=== PATIENT | male | born 1950 | race Caucasian/White ===

== ENCOUNTER 2016-08-09 15:56 | Emergency (ER) | payer MEDICARE, MEDICAID ==
[~2016-08-09] VITALS: Ht 167.6 cm; Wt 80.0 kg
[~2016-08-09 15:56] MED LIST: ALBU8I INH; INSULIN PUMP; KONS520C PO; LEVA500T PO; LOSA25TA31 PO; NOVOLOGP2 SQ; OMEP20CA2 PO; OMEP20CA5 PO; PAXI20TA26 PO; PROS5TAB2 PO; ROSU40 PO; [UNRECOGNIZED DRUG - CODE] PO
[2016-08-09 15:57] VITALS: BP 135/67; PULSE 102; RESP 20; TEMP 97.6; O2SAT 99
[2016-08-09 16:03] VITALS: RESP 18
[2016-08-09] MEDS ORDERED: ROSU40 PO (19:33)
[2016-08-09] MEDS ORDERED: NOVOLOGP2 SQ (19:35)
[2016-08-09] MEDS ORDERED: PRIL20CA9 PO (19:35)
[2016-08-09] MEDS ORDERED: PAXI20TA PO (19:35)
[2016-08-09] MEDS ORDERED: COZA25TA PO (19:35)
--- NOTE | 2016-08-09 19:35 | PD ---
HPI Chief Complaint: Head Injury Time Seen by Provider: 19:25 Travel History International Travel<30 days: No Contact w/Intl Traveler<30days: No Traveled to known affect area: No History of Present Illness HPI 66-year-old male with type 1 diabetes presents presents for evaluation after mechanical fall. He reports a 1.5 weeks ago was raining and he slipped and fell , landing on his face. There was loss of consciousness and he felt somewhat confused initially after the accident but that has resolved. He reports that he had some bleeding from his posturals which has resolved. He has been having some facial plane, inferior the orbits, as well as the bridge of the nose. Symptoms have been mild. Associated with mild frontal headache with no aggravating or alleviating factors. He was seen by his primary care physician today who sent him here to have CT imaging of the brain and face. He is not on any blood thinning medications. He has had no residual confusion or amnesia, nausea or vomiting, no pain in the neck or the back of the extremities. He reports that he has broken his nose several times in the past and he believes that he probably broke it again. He has no other complaints. PFSH Past Medical History Asthma: Yes Cancer: No Cardiovascular Problems: No High Cholesterol: Yes Diabetes: Yes (INSULIN PUMP) Diminished Hearing: No Endocrine: Yes Gastrointestinal Disorders: Yes (GASTROPARESIS) GERD: Yes Genitourinary: No Hepatitis: No Immune Disorder: No Kidney Stones: Yes (WITH LITHOTRIPSY) Musculoskeletal: No Neurologic: No Psychiatric: No Reproductive: No Respiratory: No Immunizations Current: Yes Thyroid Disease: No Past Surgical History Abdominal Surgery: No AICD: No Appendectomy: Yes Body Medical Devices: INSULIN PUMP Cardiac Surgery: No Ear Surgery: No Endocrine Surgery: Yes (INSULIN PUMP) Eye Surgery: Yes (MULTIPLE SURGERIES D/T RETINOPATHY, LASIK) Genitourinary Surgery: No Gynecologic Surgery: No Insulin Pump: Yes (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) Joint Replacement: No Oral Surgery: No Pacemaker: No Thoracic Surgery: No Tonsillectomy: Yes Other Surgery: Yes (VASECTOMY, LITHOTRIPSY) Social History Alcohol Use: No Tobacco Use: No Substance Use: No Allergies-Medications (Allergen,Severity, Reaction): Coded Allergies: Zocor (Verified Allergy, Intermediate, Cramping, 08/09/16) Bactrim (Verified Adverse Reaction, Intermediate, "ABDOMINAL PAIN", ) PT STATES GOT COLITIS Reported Meds & Prescriptions Reported Meds & Active Scripts Active Omeprazole 20 Mg Cap 20 Mg PO DAILY Reported Prilosec (Omeprazole) 20 Mg Cap 20 Mg PO DAILY Paxil (Paroxetine HCl) 20 Mg Tab 20 Mg PO DAILY Novolog Inj (Insulin Aspart) 1,000 Unit/10 Ml Vial 100 SQ DIRECTED Sliding Scale as directed. Cozaar (Losartan Potassium) 25 Mg Tab 25 Mg PO DAILY Crestor (Rosuvastatin Calcium) 40 Mg Tab 40 Mg PO DAILY [Insulin Pump] Review of Systems Except as stated in HPI: all other systems reviewed are Neg Physical Exam Narrative GENERAL: Well-developed well-nourished male in no acute distress ambulatory in the ED SKIN: Warm and dry. HEAD: Atraumatic. Normocephalic. EYES: Pupils equal and round. No scleral icterus. No injection or drainage. ENT: No nasal bleeding or discharge. Mucous membranes pink and moist. Mild tenderness to palpation along the bridge of the nose, inferior orbits bilaterally. There is no septal hematoma. There is no epistaxis. The teeth are intact. There is no trismus, no tenderness to palpation along the mandible , zygomatic arches. No bony step-offs. No lawrence sign, rhinorrhea. NECK: Trachea midline. No JVD. CARDIOVASCULAR: Regular rate and rhythm. No murmur appreciated. RESPIRATORY: No accessory muscle use. Clear to auscultation. Breath sounds equal bilaterally. MUSCULOSKELETAL: No obvious deformities. No tenderness to palpation along the neck or back. Full spontaneous use of the upper and lower extremities. Data Data Last Documented VS Vital Signs Date Time Temp Pulse Resp B/P Pulse Ox O2 Delivery O2 Flow Rate FiO2 08/09/16 19:28 96 18 99 08/09/16 15:57 97.6 135/[address] Brain W/O Iv Contrast(Rout) (08/09/16 ) Ct Facial Bones W/O Iv Cont (08/09/16 ) MDM Medical Decision Making Medical Screen Exam Complete: Yes Emergency Medical Condition: Yes Medical Record Reviewed: Yes Interpretation(s) CT brain No acute abnormalities CT facial bones CONCLUSION: 1. No acute facial bone fracture. 2. Mucosal thickening involving the outflow tracts bilaterally, as well as the bilateral maxillary sinuses and ethmoid air cells. 3. Left-sided yo bullosa. 4. Nasoseptal deviation to the right. Differential Diagnosis Nasal fracture, septal hematoma, facial fracture, contusion Narrative Course 66-year-old male presents 1.5 weeks after mechanical fall with facial pain and headache. CT imaging was performed and is unremarkable. The patient is stable for discharge. Diagnosis Primary Impression: Facial contusion Qualified Code: S00.83XA - Facial contusion, initial encounter Additional Instructions: Follow-up with primary care as needed and return for any emergent medical conditions. Med/Other Pt SpecificInfo: No Change to Meds Disposition: 01 DISCHARGE HOME Condition: Stable Abhi Dent Aug 09, 2016 19:35
--- NOTE | 2016-08-09 20:18 | RADRPT ---
EXAM DATE/TIME: 08/09/2016 19:48 [facility] COMPARISON: No previous studies available for comparison. INDICATIONS : Fell a week ago hit face on ground. RADIATION DOSE: 37.34 CTDIvol (mGy) MEDICAL HISTORY : Diabetes SURGICAL HISTORY : Appendectomy. ENCOUNTER: Initial ACUITY: 1 week PAIN SCALE: 6/10 LOCATION: cranial TECHNIQUE: Multiple contiguous axial images were obtained of the head. Using automated exposure control and adj ustment of the mA and/or kV according to patient size, radiation dose was kept as low as reasonably a chievable to obtain optimal diagnostic quality images. FINDINGS: CEREBRUM: Mild bifrontal atrophy is noted. The ventricles are normal for age. No evidence of midline shift, ma ss lesion, hemorrhage or acute infarction. No extra-axial fluid collections are seen. POSTERIOR FOSSA: The cerebellum and brainstem are intact. The 4th ventricle is midline. The cerebellopontine angle i s unremarkable. EXTRACRANIAL: The visualized portion of the orbits is intact. SKULL: The calvaria is intact. No evidence of skull fracture. CONCLUSION: Mild bifrontal atrophy. No acute infarct, acute hemorrhage, mass effect or extra axia l fluid collections. Luke Gao MD on August 09, 2016 at 20:15 Board Certified Radiologist. This report was verified electronically.
--- NOTE | 2016-08-09 20:23 | RADRPT ---
EXAM DATE/TIME: 08/09/2016 19:48 [facility] COMPARISON: No previous studies available for comparison. INDICATIONS : Fell one week ago pain nose area evaluate for fractures. RADIATION DOSE: 61.24 CTDIvol (mGy) MEDICAL HISTORY : Dibetes SURGICAL HISTORY : Appendectomy. ENCOUNTER: Initial ACUITY: 1 week PAIN SCORE: 6/10 LOCATION: facial TECHNIQUE: Volumetric scanning of the facial bones was performed. Using automated exposure control and adjustme nt of the mA and/or kV according to patient size, radiation dose was kept as low as reasonably achiev able to obtain optimal diagnostic quality images. FINDINGS: ORBITS: The orbital and infraorbital osseous structures are intact. The retroconal structures have a normal configuration. No radiopaque foreign bodies are seen. NASAL BONE: The nasal bone and maxillary spine are intact ZYGOMATIC ARCHES: Symmetric without evidence of fracture. SINUSES: Mucosal thickening is noted involving the outflow tracts bilaterally. Mild mucosal thickening is note d involving the maxillary sinuses and ethmoid air cells bilaterally. No air-fluid levels are noted wi thin the paranasal sinuses. NASAL CAVITY: Mild nasal septal deviation to the right is noted. The lacrimal ducts are intact. Left-sided yo b ullosa is noted. SOFT TISSUES: No radiopaque foreign bodies seen. No soft-tissue swelling is seen. INTRACRANIAL: No intracranial air seen. CRIBIFORM PLATE: Grossly intact. CONCLUSION: 1. No acute facial bone fracture. 2. Mucosal thickening involving the outflow tracts bilaterally, as well as the bilateral maxillary si nuses and ethmoid air cells. 3. Left-sided yo bullosa. 4. Nasoseptal deviation to the right. Luke Gao MD on August 09, 2016 at 20:17 Board Certified Radiologist. This report was verified electronically.
--- NOTE | 2016-08-09 20:31 | PD ---
Data Data Last Documented VS Vital Signs Date Time Temp Pulse Resp B/P Pulse Ox O2 Delivery O2 Flow Rate FiO2 08/09/16 19:28 96 18 99 08/09/16 15:57 97.6 135/[address] Brain W/O Iv Contrast(Rout) (08/09/16 ) Ct Facial Bones W/O Iv Cont (08/09/16 ) MDM Supervised Visit with JOHNNA: Yes Narrative Course The history, exam, and medical decision-making in the associated midlevel provider note were completed with my assistance. I reviewed and agree with the findings presented. I attest that I had a [id number] encounter with the patient on the same day, and personally performed and documented my assessment and findings in the medical record. *My assessment and Findings: This is a very pleasant 66-year-old male who presents to the emergency department having had a fall a week and a half ago. He was concerned because he continued to have a lot of facial pain and was having some fluid come from his nose. He was sent by his primary care physician for CT imaging. CT of the head and face were performed which were reassuring. Patient will be discharged home. Diagnosis Primary Impression: Facial contusion Qualified Code: S00.83XA - Facial contusion, initial encounter Additional Instruction: Follow-up with primary care as needed and return for any emergent medical conditions. Disposition: 01 DISCHARGE HOME Condition: Stable Jenniffer Beckman MD Aug 09, 2016 20:31
[2016-09-13] MEDS ORDERED: OMEP20CA2 PO (11:47)
[2016-09-25] MEDS ORDERED: PAXI20TA PO (07:40)
== END 2016-08-09 20:58 | disposition home or self-care (01) ==
LOC: NEPA 15:56
DX: S00.83XA Contusion of other part of head, initial encounter (principal); W01.0XXA Fall on same level from slipping, tripping and stumbling without subsequent striking against object, initial encounter
CPT/HCPCS: 70450; 70486

== ENCOUNTER → 2017-11-02 | Day surgery (SDC) | payer MEDICARE, MEDICAID ==
[~2017-11-02] VITALS: Ht 167.6 cm; Wt 79.6 kg
[~2017-11-02] MED LIST changes: +ACET-822 PO; -ALBU8I INH; +BUPIVACAINE HCL PF 0.25% 30 ML VIAL ONE; +CHLORHEXIDINE GLUCONATE 2 % 1 PACK (2 CLOTHS) TOPICAL PRN; +COZA25TA PO; +DO NOT ADM ANY ANTICOAGULANT DRUGS PRN; +DOCU100C15 PO; +FINA5TAB2 PO; -INSULIN PUMP; -KONS520C PO; +LACTATED RINGER'S 1000 ML IV PRN; -LEVA500T PO; +LEVA500T33 PO; +LEVOFLOXACIN 500 MG PREMIX INJ 100 ML IV ONE; +LIDOCAINE 1%/EPINEPHrine 1:100,000 SOLN 20 ML VIAL ONE; +LIDOCAINE HCL 2% JELLY 5 ML SYRINGE ONE; -LOSA25TA31 PO; +META28.34 PO; +METOPROLOL TARTRATE 25 MG TAB PO PRN; +MIDAZOLAM HCL 2 MG/2 ML VIAL ONE; -OMEP20CA5 PO; +ONDANSETRON HCL 4 MG/2 ML VIAL IV PUSH PRN; +OXYC1TAB63 PO; +PARO20TA2 PO; -PAXI20TA26 PO; +PHENYLEPH/NS 1000 MCG/10 ML SYR IV ONE; +POVIDONE IODINE 5% (ANTISEPSIS KIT) 4 APPLICATIONS EACH NARE PRN; +PROPOFOL 200 MG/20 ML AMP IV ONE; -PROS5TAB2 PO; +ROSU1TAB8 PO; -ROSU40 PO; +SODIUM CHLORID 0.9% 500 ML IV PRN; -[UNRECOGNIZED DRUG - CODE] PO; +ePHEDrine/NS 25 MG/5 ML SYRINGE IV ONE; +oxyCODONE/ACETAMINOPHEN 5 MG/325 MG TAB PO PRN
[2017-11-02 07:19] LABS: AUTOMATED NEUTROPHIL # 6.3 TH/MM3 (1.8-7.7); BASOPHIL # 0.1 TH/MM3 (0-0.2); BASOPHIL % 0.8 % (0.0-2.0); EOSINOPHIL # 0.3 TH/MM3 (0-0.4); EOSINOPHIL % 2.9 % (0.0-4.0); HEMATOCRIT 38.4 % (39.0-51.0); HEMOGLOBIN 12.9 GM/DL (13.0-17.0); LYMPH % 20.4 % (9.0-44.0); LYMPHOCYTE # 1.8 TH/MM3 (1.0-4.8); MEAN CELL VOLUME 88.4 FL (80.0-100.0); MEAN CORPUSCULAR HEMOGLOBIN 29.6 PG (27.0-34.0); MEAN CORPUSCULAR HGB CONC 33.5 % (32.0-36.0); MEAN PLATELET VOLUME 8.8 FL (7.0-11.0); MONO % 6.7 % (0.0-8.0); MONOCYTE # 0.6 TH/MM3 (0-0.9); NEUT % 69.2 % (16.0-70.0); PLATELET COUNT 303 TH/MM3 (150-450); RED BLOOD COUNT 4.35 MIL/MM3 (4.50-5.90); RED CELL DISTRIBUTION WIDTH 13.3 % (11.6-17.2); WHITE BLOOD COUNT 9.1 TH/MM3 (4.0-11.0)
--- NOTE | 2017-11-02 08:42 | PD.OP ---
Operative Report Date of Surgery: Nov 02, 2017 Preoperative Diagnosis: (1) Pelvic lymphadenopathy Postoperative Diagnosis: (1) Pelvic lymphadenopathy Procedure: Transrectal ultrasound-guided needle biopsies of the prostate 12 Anesthesia: General Surgeon: Gonsalo Fournier Carpet Renovator(s): None Operation and Findings: Indication for procedures: Case of a pleasant 67-year-old gentleman who was recently discovered to have pelvic lymphadenopathy on CT scanning and presents now for transrectal ultrasound-guided needle biopsies of the prostate to rule out prostate cancer. Operative procedures in detail: Patient was brought to the operating room suite and placed supine. He was then placed under general anesthesia. He was then repositioned in the left lateral recumbent position. After an appropriate timeout was undertaken I proceeded with performing a transrectal ultrasound. There were no hypo-echoic areas noted within the prostate. Prostate volume was measured at 34 cc. I then proceeded with taking needle biopsies starting on the right side. 2 biopsies were taken from the base, mid level and apex respectively. In similar fashion biopsies were taken from the left side as well. A total of 12 needle biopsies were taken and the tissue submitted off to pathology. The patient tolerated the procedures without complications and was transferred to the PACU in satisfactory condition. Gonsalo Fournier MD Nov 02, 2017 08:42
[2017-11-02 09:15] VITALS: BP 162/68; PULSE 92; RESP 16; TEMP 96; O2SAT 98
--- NOTE | 2017-11-02 12:44 | EKG ---
Date Performed: 11/02/2017 Time Performed: 06:48:01 PTAGE: 67 years EKG: Sinus rhythm NORMAL ECG Since the PREVIOUS TRACING , no significant change noted PREVIOUS TRACIN08/01/1998 12.49 DOCTOR: Jun Rothman Interpretating Date/Time 11/02/2017 12:41:19
== END | disposition home or self-care (01) ==
LOC: HSDC 05:58
PROVIDERS: ATTEND Urology
DX: N41.1 Chronic prostatitis (principal); I10 Essential (primary) hypertension; E11.9 Type 2 diabetes mellitus without complications; J44.9 Chronic obstructive pulmonary disease, unspecified; Z79.4 Long term (current) use of insulin; Z96.41 Presence of insulin pump (external) (internal); Z01.810 Encounter for preprocedural cardiovascular examination; Z01.818 Encounter for other preprocedural examination
CPT/HCPCS: 00400; 55700; 85025; 93005; G0416; J1956; J2250; J2370; J7120; 88307